=== PATIENT | female | born 1995 | race Caucasian/White ===

== ENCOUNTER 2018-07-01 13:20 | Emergency (ER) | payer OTHER ==
[~2018-07-01] VITALS: Ht 160 cm; Wt 68.0 kg
== END 2018-07-01 16:30 | disposition home or self-care (01) ==
LOC: ED 13:20
DX: S13.9XXA Sprain of joints and ligaments of unspecified parts of neck, initial encounter (principal); M54.5 Low back pain; J34.89 Other specified disorders of nose and nasal sinuses; R07.81 Pleurodynia; F17.200 Nicotine dependence, unspecified, uncomplicated; V80.010A Animal-rider injured by fall from or being thrown from horse in noncollision accident, initial encounter; Y93.89 Activity, other specified; Y92.89 Other specified places as the place of occurrence of the external cause; Y99.8 Other external cause status

== ENCOUNTER 2019-09-07 14:50 | Emergency (ER) | payer SELFPAY ==
[~2019-09-07] VITALS: Ht 160 cm; Wt 62.6 kg
[2019-09-07] MEDS ORDERED: MUCINEX1200 M1 PO (15:57)
[2019-09-07] MEDS ORDERED: CLARITIN10 MG PO (15:57)
[2019-09-07] MEDS ORDERED: PROVENTIL HFA6.7 GM INH (15:57)
== END 2019-09-07 16:02 | disposition home or self-care (01) ==
LOC: ED 14:50
DX: J45.909 Unspecified asthma, uncomplicated (principal)

== ENCOUNTER 2020-06-26 10:56 | Emergency (ER) | payer SELFPAY ==
[~2020-06-26] VITALS: Wt 68.0 kg
[~2020-06-26 10:56] MED LIST: CLARITIN10 MG PO; MUCINEX1200 M1 PO; PROVENTIL HFA6.7 GM INH
[2020-06-26] MEDS ORDERED: CLINDAMYCIN HC300 MG PO (11:21)
[2020-06-26] MEDS ORDERED: ACETAMINOP160 MG/11 PO (11:21)
[2020-06-26] MEDS ORDERED: Motrin,Rufen800 MG PO (11:21)
== END 2020-06-26 11:38 | disposition home or self-care (01) ==
LOC: ED 10:56
DX: K04.7 Periapical abscess without sinus (principal); Z79.899 Other long term (current) drug therapy